=== PATIENT | female | born 1965 | race Caucasian/White ===

== ENCOUNTER → 2018-02-26 | Outpatient (CLI) | payer BC ==
[2018-02-26 16:09] LABS: BASO % 0.4 % (0.0-1.0); EOS # 0.2 10*3/uL (0.0-0.4); HEMATOCRIT 43.7 % (37.0-47.0); HEMOGLOBIN 14.5 g/dl (12.0-16.0); MEAN CELL VOLUME 89.9 fl (81.0-99.0); MEAN CORPUSCULAR HGB 29.8 pg (27.0-31.0); MEAN CORPUSCULAR HGB CONC 33.2 g/dl (33.0-37.0); MEAN PLATELET VOLUME 9.7 fl (9.6-12.3); MONO # 0.9 10*3/uL (0.1-1.0); MONO % 9.7 % (3.0-9.0); NEUT # 5.9 10*3/uL (2.3-7.9); NEUT % 65.3 % (47.0-73.0); PLATELET COUNT AUTOMATED 379 10*3/uL (130-400); RED BLOOD COUNT 4.86 10*6/uL (4.10-5.10); RED CELL DISTRI WIDTH 14.4 % (0-14.5)
[2018-02-26 16:24] LABS: ALBUMIN 3.3 gm/dl (3.1-4.5); ALKALINE PHOSPHATASE 81 U/L (45-117); BUN 10 mg/dl (7-24); CHLORIDE 99 mmol/L (98-107); CHOLESTEROL 249 mg/dL (<200); CREATININE 0.97 mg/dL (0.55-1.02); HDL CHOLESTEROL 42 mg/dl (40-60); IRON 74 ug/dL (50-170); LDL CHOLESTEROL 177 mg/dL (9-159); POTASSIUM 4.4 mmol/L (3.5-5.1); SGOT/AST 11 IU/L (3-35); SGPT/ALT 29 U/L (12-78); SODIUM 136 mmol/L (136-145); TOTAL IRON BINDING CAPACITY 284 ug/dl (250-450); TOTAL PROTEIN 7.8 gm/dL (6.4-8.2); TRIGLYCERIDES 151 mg/dl (<150); URIC ACID 4.8 mg/dL (2.6-6.0); VLDL CHOLESTEROL 30 mg/dL (6-40)
[2018-02-26 16:31] LABS: CPK 55 U/L (26-192)
[2018-02-26 17:16] LABS: FERRITIN 147.5 ng/mL (10.0-291.0); VITAMIN D, 25-HYDROXY 16.8 ng/mL (30-100)
== END | disposition home or self-care (01) ==
PROVIDERS: Family Medicine
DX: I50.22 Chronic systolic (congestive) heart failure (principal); E11.9 Type 2 diabetes mellitus without complications; J44.9 Chronic obstructive pulmonary disease, unspecified; K58.9 Irritable bowel syndrome, unspecified; F32.9 Major depressive disorder, single episode, unspecified; G40.909 Epilepsy, unspecified, not intractable, without status epilepticus; G47.33 Obstructive sleep apnea (adult) (pediatric)

== ENCOUNTER → 2020-06-26 | Outpatient (CLI) | payer OTHER, MEDICAID ==
[2020-06-26 15:24] LABS: ALBUMIN 3.3 gm/dl (3.1-4.5); ALKALINE PHOSPHATASE 77 U/L (45-117); BILIRUBIN, DIRECT 0.1 mg/dL (0.0-0.2); BUN 8 mg/dl (7-24); CHLORIDE 97 mmol/L (98-107); CHOLESTEROL 170 mg/dL (<200); CREATININE 1.04 mg/dL (0.55-1.02); LDL CHOLESTEROL 82 mg/dL (9-159); POTASSIUM 4.9 mmol/L (3.5-5.1); SGOT/AST 15 IU/L (3-35); SGPT/ALT 29 U/L (12-78); SODIUM 136 mmol/L (136-145); TOTAL PROTEIN 7.3 gm/dL (6.4-8.2); TRIGLYCERIDES 99 mg/dl (<150)
[2020-06-26 15:34] LABS: VITAMIN D, 25-HYDROXY 25.1 ng/mL (30-100)
[2020-06-26 16:57] LABS: BILIRUBIN Negative (Negative); BLOOD Negative (Negative); CLARITY Clear (Clear); COLOR Yellow (Yellow); GLUCOSE Negative (Negative); KETONE Negative (Negative); LEUKO ESTERASE Negative (Negative); NITRITE Negative (Negative); PH 6.5 (4.5-8.0); SPECIFIC GRAVITY <= 1.005 (1.001-1.030); UROBILINOGEN 0.2 E.U./dl (0.0-1.0)
[2020-06-26 17:37] LABS: BACTERIA 1+; RBC 0-2 rbc/hpf (0-2); WBC 0-2 wbc/hpf (0-5)
== END | disposition home or self-care (01) ==
LOC: LAB 13:55
PROVIDERS: ATTEND Internal Medicine
DX: E11.65 Type 2 diabetes mellitus with hyperglycemia (principal); E11.40 Type 2 diabetes mellitus with diabetic neuropathy, unspecified; E78.5 Hyperlipidemia, unspecified; E55.9 Vitamin D deficiency, unspecified

== ENCOUNTER → 2020-07-13 | Outpatient (CLI) | payer OTHER, MEDICAID ==
[2020-07-13 16:50] LABS: BILIRUBIN Negative (Negative); BLOOD Negative (Negative); CLARITY Clear (Clear); COLOR Yellow (Yellow); GLUCOSE Negative (Negative); KETONE Negative (Negative); LEUKO ESTERASE 3+ (Negative); NITRITE Negative (Negative); SPECIFIC GRAVITY <= 1.005 (1.001-1.030); UROBILINOGEN 0.2 E.U./dl (0.0-1.0)
[2020-07-13 16:57] LABS: EPITHELIAL CELLS 0-2; RBC 0-2 rbc/hpf (0-2); WBC TNTC wbc/hpf (0-5)
[2020-07-13 16:58] LABS: BACTERIA 1+
== END | disposition home or self-care (01) ==
LOC: CT 07-09 11:00 → LAB 15:05
PROVIDERS: ATTEND Urology
DX: R91.1 Solitary pulmonary nodule (principal); N39.0 Urinary tract infection, site not specified; I25.10 Atherosclerotic heart disease of native coronary artery without angina pectoris; Z96.82 Presence of neurostimulator

== ENCOUNTER → 2021-12-02 | Outpatient (CLI) | payer OTHER, MEDICAID | END | disposition home or self-care (01) | LOC: CT 11:00 | PROVIDERS: ATTEND Urology | DX: N39.0 Urinary tract infection, site not specified (principal); R31.9 Hematuria, unspecified; M25.512 Pain in left shoulder; N32.89 Other specified disorders of bladder; R91.1 Solitary pulmonary nodule; M89.8X8 Other specified disorders of bone, other site ==

== ENCOUNTER 2021-12-28 05:57 | Inpatient (IN) | payer OTHER, MEDICAID ==
[~2021-12-28] VITALS: Ht 165.1 cm; Wt 93.5 kg
[2021-12-28 06:00] VITALS: BP 181/56
[2021-12-28 06:46] LABS: BASO % 0.3 % (0.0-1.0); EOS # 0.1 10*3/uL (0.0-0.4); EOS % 1.1 % (1.0-4.0); HEMATOCRIT 34.6 % (37.0-47.0); LYMPH # 1.4 10*3/uL (1.3-4.4); LYMPH % 10.5 % (27.0-41.0); MEAN CELL VOLUME 79.7 fl (81.0-99.0); MEAN CORPUSCULAR HGB CONC 33.8 g/dl (33.0-37.0); MEAN PLATELET VOLUME 8.2 fl (9.6-12.3); MONO # 1.2 10*3/uL (0.1-1.0); MONO % 8.8 % (3.0-9.0); NEUT # 10.4 10*3/uL (2.3-7.9); NEUT % 78.6 % (47.0-73.0); PLATELET COUNT AUTOMATED 375 10*3/uL (130-400); RED BLOOD COUNT 4.34 10*6/uL (4.10-5.10); RED CELL DISTRI WIDTH 14.6 % (0-14.5); WHITE BLOOD COUNT 13.2 10*3/uL (4.8-10.8)
[2021-12-28 07:05] VITALS: BP 178/58
[2021-12-28 07:35] LABS: BUN 18 mg/dl (7-24); CHLORIDE 83 mmol/L (98-107); CREATININE 1.07 mg/dL (0.55-1.02); POTASSIUM 4.4 mmol/L (3.5-5.1); TOTAL PROTEIN 6.9 gm/dL (6.4-8.2)
[2021-12-28 07:36] LABS: ALKALINE PHOSPHATASE 71 U/L (45-117); SGOT/AST 14 IU/L (3-35); SGPT/ALT 18 U/L (12-78)
[2021-12-28 07:38] LABS: SODIUM 119 mmol/L (136-145)
[2021-12-28 11:04] LABS: BILIRUBIN Negative (Negative); BLOOD Negative (Negative); CLARITY Clear (Clear); COLOR Yellow (Yellow); GLUCOSE Negative (Negative); KETONE Negative (Negative); LEUKO ESTERASE Trace (Negative); NITRITE Negative (Negative); PH 5.5 (4.5-8.0); SPECIFIC GRAVITY <= 1.005 (1.001-1.030); UROBILINOGEN 0.2 E.U./dl (0.0-1.0)
[2021-12-28 11:15] LABS: BACTERIA 2+; EPITHELIAL CELLS 0-2
[2021-12-28 14:41] LABS: BUN 19 mg/dl (7-24); CHLORIDE 88 mmol/L (98-107); CREATININE 1.05 mg/dL (0.55-1.02); POTASSIUM 4.3 mmol/L (3.5-5.1); SODIUM 125 mmol/L (136-145)
[2021-12-28] MEDS ORDERED: PREGABALIN300 MG PO (16:53)
[2021-12-28] MEDS ORDERED: 'XANAX1 MG PO (16:53)
[2021-12-28] MEDS ORDERED: LYRICA75 M1 PO (16:54)
[2021-12-28] MEDS ORDERED: PREDNISONE20 M1 PO (16:56)
[2021-12-28] MEDS ORDERED: VARENICLINE TART1 MG PO (16:57)
[2021-12-28] MEDS ORDERED: LEVORPHANOL TART2 MG PO (16:57)
[2021-12-28] MEDS ORDERED: TRESIBA FL200 UNIT/1 SQ (16:59)
[2021-12-28] MEDS ORDERED: INSULIN LI100 UNIT/3 SQ (17:01)
[2021-12-28] MEDS ORDERED: DULOXETINE HCL60 MG PO (17:02)
[2021-12-28] MEDS ORDERED: RANOLAZINE ER500 MG PO (17:08)
[2021-12-28] MEDS ORDERED: PANTOPRAZOLE SO40 MG PO (17:09)
[2021-12-28] MEDS ORDERED: MONTELUKAST SOD10 MG PO (17:14)
[2021-12-28] MEDS ORDERED: POTASSIUM CHLO20 ME4 PO (17:15)
[2021-12-28] MEDS ORDERED: VITAMIN B-650 M1 PO (17:17)
[2021-12-28] MEDS ORDERED: GLIPIZIDE5 M1 PO (17:18)
[2021-12-28] MEDS ORDERED: SIMVASTATIN20 MG PO (17:19)
[2021-12-28] MEDS ORDERED: CARVEDILOL3.125 MG PO (17:20)
[2021-12-28] MEDS ORDERED: ASPIRIN ADULT L81 M1 PO (17:20)
[2021-12-28] MEDS ORDERED: CLOPIDOGREL75 MG PO (17:21)
[2021-12-28] MEDS ORDERED: METFORMIN HYDR500 MG PO (17:22)
[2021-12-28] MEDS ORDERED: FUROSEMIDE40 MG PO (17:22)
[2021-12-28] MEDS ORDERED: LISINOPRIL20 MG PO (17:23)
[2021-12-28] MEDS ORDERED: QUETIAPINE FUM200 M3 PO (17:23)
[2021-12-28] MEDS ORDERED: VITAMIN D3125 MC1 PO (17:24)
[2021-12-28] MEDS ORDERED: CETIRIZINE HYDR10 MG PO (17:25)
[2021-12-28] MEDS ORDERED: MYRBETRIQ25 M1 PO (17:25)
[2021-12-28 18:50] LABS: BUN 19 mg/dl (7-24); CHLORIDE 89 mmol/L (98-107); CREATININE 0.94 mg/dL (0.55-1.02); POTASSIUM 4.3 mmol/L (3.5-5.1); SODIUM 124 mmol/L (136-145)
[2021-12-28 19:23] VITALS: BP 114/44
[2021-12-28 22:40] VITALS: BP 126/56
[2021-12-28 23:25] LABS: BUN 16 mg/dl (7-24); CHLORIDE 92 mmol/L (98-107); CREATININE 0.91 mg/dL (0.55-1.02); POTASSIUM 3.9 mmol/L (3.5-5.1); SODIUM 129 mmol/L (136-145)
[2021-12-28 23:45] VITALS: BP 162/55
[2021-12-29] MEDS ORDERED: VENTOLIN 02.5 MG/3 M INH (00:24)
[2021-12-29] MEDS ORDERED: IPRATROPIU0.2 MG/1 M NEB (00:24)
[2021-12-29] MEDS ORDERED: XANAX0.5 MG PO (00:29)
[2021-12-29 04:00] VITALS: BP 162/50
[2021-12-29 05:00] LABS: ACT PARTIAL THROMBO TIME 27.7 SECONDS (20.0-32.1); INTERNATIONAL NORM RATIO 0.9 (2.0-3.5)
[2021-12-29 05:13] LABS: BUN 14 mg/dl (7-24); CHLORIDE 98 mmol/L (98-107); CHOLESTEROL 169 mg/dL (<200); CREATININE 0.85 mg/dL (0.55-1.02); POTASSIUM 4.3 mmol/L (3.5-5.1); SGOT/AST 14 IU/L (3-35); SGPT/ALT 23 U/L (12-78); SODIUM 133 mmol/L (136-145); TRIGLYCERIDES 102 mg/dl (<150)
[2021-12-29 05:17] LABS: ALKALINE PHOSPHATASE 76 U/L (45-117); FREE T4 0.88 ng/dl (0.76-1.46); LDL CHOLESTEROL 69 mg/dL (9-159); TOTAL PROTEIN 7.4 gm/dL (6.4-8.2)
[2021-12-29 06:25] LABS: BASO % 0.5 % (0.0-1.0); EOS # 0.1 10*3/uL (0.0-0.4); EOS % 0.9 % (1.0-4.0); HEMATOCRIT 36.2 % (37.0-47.0); LYMPH # 2.1 10*3/uL (1.3-4.4); LYMPH % 26.7 % (27.0-41.0); MEAN CELL VOLUME 81.7 fl (81.0-99.0); MEAN CORPUSCULAR HGB 26.9 pg (27.0-31.0); MEAN CORPUSCULAR HGB CONC 32.9 g/dl (33.0-37.0); MEAN PLATELET VOLUME 8.9 fl (9.6-12.3); MONO # 1.2 10*3/uL (0.1-1.0); MONO % 15.2 % (3.0-9.0); NEUT # 4.5 10*3/uL (2.3-7.9); NEUT % 56.4 % (47.0-73.0); PLATELET COUNT AUTOMATED 454 10*3/uL (130-400); RED BLOOD COUNT 4.43 10*6/uL (4.10-5.10); RED CELL DISTRI WIDTH 15.2 % (0-14.5); WHITE BLOOD COUNT 7.9 10*3/uL (4.8-10.8)
[2021-12-29 06:59] LABS: VITAMIN D, 25-HYDROXY 59.9 ng/mL (30-100)
[2021-12-29 08:00] VITALS: BP 108/36
[2021-12-29 10:07] LABS: BUN 12 mg/dl (7-24); CHLORIDE 97 mmol/L (98-107); CREATININE 0.86 mg/dL (0.55-1.02); POTASSIUM 4.2 mmol/L (3.5-5.1); SODIUM 130 mmol/L (136-145)
[2021-12-29 12:00] VITALS: BP 92/32
[2021-12-29 12:42] LABS: BUN 12 mg/dl (7-24); CHLORIDE 97 mmol/L (98-107); CREATININE 0.76 mg/dL (0.55-1.02); POTASSIUM 4.7 mmol/L (3.5-5.1); SODIUM 131 mmol/L (136-145)
[2021-12-29 15:50] LABS: BUN 11 mg/dl (7-24); CHLORIDE 96 mmol/L (98-107); CREATININE 0.96 mg/dL (0.55-1.02); POTASSIUM 4.9 mmol/L (3.5-5.1); SODIUM 129 mmol/L (136-145)
[2021-12-29 16:00] VITALS: BP 101/42
[2021-12-29 18:41] LABS: BUN 13 mg/dl (7-24); CHLORIDE 95 mmol/L (98-107); CREATININE 1.02 mg/dL (0.55-1.02); SODIUM 128 mmol/L (136-145)
[2021-12-29 20:00] VITALS: BP 107/38
[2021-12-29 21:42] LABS: BUN 14 mg/dl (7-24); CHLORIDE 93 mmol/L (98-107); CREATININE 0.94 mg/dL (0.55-1.02); POTASSIUM 4.8 mmol/L (3.5-5.1); SODIUM 128 mmol/L (136-145)
[2021-12-30] VITALS: BP 127/64
[2021-12-30 01:23] LABS: BUN 13 mg/dl (7-24); CHLORIDE 90 mmol/L (98-107); CREATININE 0.91 mg/dL (0.55-1.02); POTASSIUM 4.4 mmol/L (3.5-5.1); SODIUM 124 mmol/L (136-145)
[2021-12-30 04:00] VITALS: BP 141/47
[2021-12-30 06:49] LABS: BASO % 0.6 % (0.0-1.0); EOS % 0.4 % (1.0-4.0); HEMATOCRIT 28.5 % (37.0-47.0); LYMPH # 1.9 10*3/uL (1.3-4.4); LYMPH % 26.7 % (27.0-41.0); MEAN CELL VOLUME 80.5 fl (81.0-99.0); MEAN CORPUSCULAR HGB 27.7 pg (27.0-31.0); MEAN CORPUSCULAR HGB CONC 34.4 g/dl (33.0-37.0); MEAN PLATELET VOLUME 8.3 fl (9.6-12.3); MONO % 14.1 % (3.0-9.0); NEUT # 4.2 10*3/uL (2.3-7.9); NEUT % 58.1 % (47.0-73.0); PLATELET COUNT AUTOMATED 328 10*3/uL (130-400); RED BLOOD COUNT 3.54 10*6/uL (4.10-5.10); RED CELL DISTRI WIDTH 15.1 % (0-14.5); WHITE BLOOD COUNT 7.2 10*3/uL (4.8-10.8)
[2021-12-30 07:15] LABS: CHLORIDE 91 mmol/L (98-107); POTASSIUM 4.2 mmol/L (3.5-5.1); SODIUM 125 mmol/L (136-145)
[2021-12-30 07:21] LABS: BUN 12 mg/dl (7-24); CREATININE 0.82 mg/dL (0.55-1.02)
[2021-12-30 08:00] VITALS: BP 136/48
[2021-12-30 11:47] LABS: BUN 12 mg/dl (7-24); CHLORIDE 90 mmol/L (98-107); CREATININE 0.94 mg/dL (0.55-1.02); POTASSIUM 4.7 mmol/L (3.5-5.1); SODIUM 125 mmol/L (136-145)
[2021-12-30 12:00] VITALS: BP 138/99
[2021-12-30 12:09] LABS: BILIRUBIN Negative (Negative); BLOOD Negative (Negative); CLARITY Clear (Clear); COLOR Yellow (Yellow); GLUCOSE 2+ (Negative); KETONE Negative (Negative); LEUKO ESTERASE 1+ (Negative); NITRITE Negative (Negative); PH 5.5 (4.5-8.0); UROBILINOGEN 0.2 E.U./dl (0.0-1.0)
[2021-12-30 12:32] LABS: RBC 0-2 rbc/hpf (0-2)
[2021-12-30 16:00] VITALS: BP 153/48
[2021-12-30 16:21] LABS: BUN 11 mg/dl (7-24); CHLORIDE 88 mmol/L (98-107); CREATININE 0.93 mg/dL (0.55-1.02); SODIUM 123 mmol/L (136-145)
[2021-12-30 20:00] VITALS: BP 138/62
[2021-12-31] VITALS: BP 128/64
[2021-12-31 04:00] VITALS: BP 142/64
[2021-12-31 06:00] LABS: BUN 9 mg/dl (7-24); CHLORIDE 89 mmol/L (98-107); CREATININE 0.74 mg/dL (0.55-1.02); POTASSIUM 4.1 mmol/L (3.5-5.1); SODIUM 124 mmol/L (136-145)
[2021-12-31 08:00] VITALS: BP 136/56
[2021-12-31] MEDS ORDERED: ZITHROMAX TRI-500 M1 PO (15:46)
== END 2021-12-31 16:46 | disposition home health service (06) | DRG 640 ==
LOC: ED 05:57 → ICCU 08:52 → EDHOLD 08:52 → ICCU 23:29
PROVIDERS: Emergency Medicine; Internal Medicine; Student in an Organized Health Care Education/Training Program; ADMIT Student in an Organized Health Care Education/Training Program; ATTEND Student in an Organized Health Care Education/Training Program
PROC: 5A09357 Assistance with Respiratory Ventilation, Less than 24 Consecutive Hours, Continuous Positive Airway Pressure (ICD-10-PCS; principal; 2021-12-28)
PROC: 5A09357 Assistance with Respiratory Ventilation, Less than 24 Consecutive Hours, Continuous Positive Airway Pressure (ICD-10-PCS; 2021-12-29)
PROC: 5A09357 Assistance with Respiratory Ventilation, Less than 24 Consecutive Hours, Continuous Positive Airway Pressure (ICD-10-PCS; 2021-12-31)
DX: E87.1 Hypo-osmolality and hyponatremia (principal); N17.0 Acute kidney failure with tubular necrosis; J44.1 Chronic obstructive pulmonary disease with (acute) exacerbation; E44.1 Mild protein-calorie malnutrition; I50.32 Chronic diastolic (congestive) heart failure; I25.10 Atherosclerotic heart disease of native coronary artery without angina pectoris; J45.909 Unspecified asthma, uncomplicated; R04.0 Epistaxis; F41.9 Anxiety disorder, unspecified; K21.9 Gastro-esophageal reflux disease without esophagitis; F32.9 Major depressive disorder, single episode, unspecified; D72.829 Elevated white blood cell count, unspecified; E11.65 Type 2 diabetes mellitus with hyperglycemia; F17.210 Nicotine dependence, cigarettes, uncomplicated; D50.9 Iron deficiency anemia, unspecified; I11.0 Hypertensive heart disease with heart failure; E87.8 Other disorders of electrolyte and fluid balance, not elsewhere classified; Z88.2 Allergy status to sulfonamides; Z88.8 Allergy status to other drugs, medicaments and biological substances; Z90.710 Acquired absence of both cervix and uterus; Z98.51 Tubal ligation status; Z95.5 Presence of coronary angioplasty implant and graft; Z79.4 Long term (current) use of insulin; Z82.49 Family history of ischemic heart disease and other diseases of the circulatory system; Z83.3 Family history of diabetes mellitus; Z82.3 Family history of stroke; Z71.6 Tobacco abuse counseling; Z68.34 Body mass index [BMI] 34.0-34.9, adult

== ENCOUNTER 2022-08-26 16:03 | Emergency (ER) | payer OTHER, MEDICAID ==
[~2022-08-26 16:03] MED LIST: 'XANAX1 MG PO; ASPIRIN ADULT L81 M1 PO; CARVEDILOL3.125 MG PO; CETIRIZINE HYDR10 MG PO; CLOPIDOGREL75 MG PO; DULOXETINE HCL60 MG PO; FUROSEMIDE40 MG PO; GLIPIZIDE5 M1 PO; INSULIN LI100 UNIT/3 SQ; IPRATROPIU0.2 MG/1 M NEB; LEVORPHANOL TART2 MG PO; LISINOPRIL20 MG PO; LYRICA75 M1 PO; MAGNESIUM400 M1 PO; METFORMIN HYDR500 MG PO; MONTELUKAST SOD10 MG PO; MYRBETRIQ25 M1 PO; PANTOPRAZOLE SO40 MG PO; POTASSIUM CHLO20 ME4 PO; PREDNISONE20 M1 PO; PREGABALIN300 MG PO; QUETIAPINE FUM200 M3 PO; RANOLAZINE ER500 MG PO; SIMVASTATIN20 MG PO; TRESIBA FL200 UNIT/1 SQ; VARENICLINE TART1 MG PO; VENTOLIN 02.5 MG/3 M INH; VIT D PO; VITAMIN B-650 M1 PO; VITAMIN D3125 MC1 PO; XANAX0.5 MG PO; ZITHROMAX TRI-500 M1 PO
[2022-08-26] MEDS ORDERED: HYDROCODONE-AC1 EAC1 PO (18:18)
== END 2022-08-26 18:25 | disposition home or self-care (01) ==
LOC: ED 16:03
DX: S50.02XA Contusion of left elbow, initial encounter (principal); J44.9 Chronic obstructive pulmonary disease, unspecified; Z88.2 Allergy status to sulfonamides; Z88.6 Allergy status to analgesic agent; Z88.8 Allergy status to other drugs, medicaments and biological substances; Z98.51 Tubal ligation status; Z90.710 Acquired absence of both cervix and uterus; Z98.890 Other specified postprocedural states; F17.200 Nicotine dependence, unspecified, uncomplicated; W01.10XA Fall on same level from slipping, tripping and stumbling with subsequent striking against unspecified object, initial encounter; Y93.89 Activity, other specified; Y92.89 Other specified places as the place of occurrence of the external cause; Y99.8 Other external cause status

== ENCOUNTER 2023-02-14 03:24 | Emergency (ER) | payer OTHER, MEDICAID ==
[~2023-02-14] VITALS: Ht 165.1 cm; Wt 111.6 kg
[~2023-02-14 03:24] MED LIST changes: +AMIODARONE HYD200 MG PO; +ATARAX,VISTARIL50 MG PO; +ATORVASTATIN CA40 M1 PO; +BUSPIRONE HCL30 MG PO; +CYMBALTA60 MG PO; +DOXEPIN HCL10 MG PO; +HUMALOG100 UNIT/1 SC; +HYDROCODONE-AC1 EAC1 PO; +LACTULOSE20 GM/30 M PO; +LASIX40 MG PO; +LISINOPRIL2.5 MG PO; +LUNESTA3 M1 PO; +METOPROLOL SUCC25 M2 PO; +ONDANSETRON HYDR4 M1 PO; +PLAVIX75 M1 PO; +PROTONIX40 MG PO; +REXULTI3 MG PO; +TRELEGY ELLIPT1 EACH INH; +VERQUVO10 MG PO; +VESICARE5 MG PO; +VITAMIN B6100 MG/2.5 PO; +VITAMIN D3125 MCG PO; +Vit. B650 MG PO; +XARE20MG PO
[2023-02-14 03:42] LABS: BASO % 0.1 % (0.0-1.0); EOS % 0.1 % (1.0-4.0); HEMATOCRIT 28.6 % (37.0-47.0); LYMPH # 0.7 10*3/uL (1.3-4.4); LYMPH % 7.5 % (27.0-41.0); MEAN CELL VOLUME 84.6 fl (81.0-99.0); MEAN CORPUSCULAR HGB 26.6 pg (27.0-31.0); MEAN CORPUSCULAR HGB CONC 31.5 g/dl (33.0-37.0); MEAN PLATELET VOLUME 8.6 fl (9.6-12.3); MONO # 0.3 10*3/uL (0.1-1.0); MONO % 3.7 % (3.0-9.0); NEUT # 7.8 10*3/uL (2.3-7.9); NEUT % 87.9 % (47.0-73.0); PLATELET COUNT AUTOMATED 397 10*3/uL (130-400); RED BLOOD COUNT 3.38 10*6/uL (4.10-5.10); RED CELL DISTRI WIDTH 15.2 % (0-14.5); WHITE BLOOD COUNT 8.9 10*3/uL (4.8-10.8)
[2023-02-14 04:02] LABS: POTASSIUM 4.2 mmol/L (3.4-5.1)
[2023-02-14] MEDS ORDERED: AMOX-CLAV 875-1 EACH PO (07:12)
== END 2023-02-14 07:09 | disposition home or self-care (01) ==
LOC: ED 03:24
PROVIDERS: Internal Medicine
DX: U07.1 COVID-19 (principal); N18.31 Chronic kidney disease, stage 3a; J44.9 Chronic obstructive pulmonary disease, unspecified; J32.9 Chronic sinusitis, unspecified; D64.9 Anemia, unspecified; E44.1 Mild protein-calorie malnutrition; Z68.1 Body mass index [BMI] 19.9 or less, adult; Z88.8 Allergy status to other drugs, medicaments and biological substances; Z88.6 Allergy status to analgesic agent; Z88.2 Allergy status to sulfonamides; Z90.710 Acquired absence of both cervix and uterus; Z98.51 Tubal ligation status; Z98.890 Other specified postprocedural states; Z87.891 Personal history of nicotine dependence

== ENCOUNTER 2023-03-04 02:53 | Emergency (ER) | payer OTHER, MEDICAID ==
[~2023-03-04] VITALS: Ht 165.1 cm; Wt 104.3 kg
[~2023-03-04 02:53] MED LIST changes: +AMOX-CLAV 875-1 EACH PO
[2023-03-04 03:17] LABS: BASO % 0.3 % (0.0-1.0); EOS # 0.1 10*3/uL (0.0-0.4); EOS % 1.3 % (1.0-4.0); HEMATOCRIT 30.3 % (37.0-47.0); LYMPH # 1.3 10*3/uL (1.3-4.4); LYMPH % 12.1 % (27.0-41.0); MEAN CELL VOLUME 82.3 fl (81.0-99.0); MEAN CORPUSCULAR HGB 26.1 pg (27.0-31.0); MEAN CORPUSCULAR HGB CONC 31.7 g/dl (33.0-37.0); MEAN PLATELET VOLUME 8.8 fl (9.6-12.3); MONO # 1.2 10*3/uL (0.1-1.0); NEUT # 7.6 10*3/uL (2.3-7.9); PLATELET COUNT AUTOMATED 405 10*3/uL (130-400); RED BLOOD COUNT 3.68 10*6/uL (4.10-5.10); RED CELL DISTRI WIDTH 15.2 % (0-14.5); WHITE BLOOD COUNT 10.3 10*3/uL (4.8-10.8)
[2023-03-04 03:42] LABS: ALKALINE PHOSPHATASE 92 U/L (46-116); BUN 9 mg/dl (9-23); CHLORIDE 90 mmol/L (98-107); LIPASE 26 U/L (12-53); POTASSIUM 3.7 mmol/L (3.4-5.1); SGPT/ALT 19 U/L (5-49)
== END 2023-03-04 08:30 | disposition short-term general hospital (02) ==
LOC: ED 02:53
PROVIDERS: Internal Medicine
DX: K92.2 Gastrointestinal hemorrhage, unspecified (principal); Z88.8 Allergy status to other drugs, medicaments and biological substances; Z88.2 Allergy status to sulfonamides; Z79.899 Other long term (current) drug therapy; Z79.2 Long term (current) use of antibiotics; Z79.4 Long term (current) use of insulin; Z90.711 Acquired absence of uterus with remaining cervical stump; Z98.51 Tubal ligation status; Z95.5 Presence of coronary angioplasty implant and graft; Z87.891 Personal history of nicotine dependence; R06.02 Shortness of breath

== ENCOUNTER 2023-03-27 17:21 | Emergency (ER) | payer OTHER, MEDICAID ==
[~2023-03-27] VITALS: Ht 162.5 cm; Wt 113.4 kg
[~2023-03-27 17:21] MED LIST changes: +ATIVAN0.5 MG PO; +CYMBALTA30 MG PO; +LASIX20 MG PO; +REXULTI2 MG PO
[2023-03-27 18:00] LABS: BASO % 0.3 % (0.0-1.0); EOS # 0.1 10*3/uL (0.0-0.4); HEMATOCRIT 29.7 % (37.0-47.0); LYMPH # 1.3 10*3/uL (1.3-4.4); LYMPH % 17.2 % (27.0-41.0); MEAN CELL VOLUME 82.7 fl (81.0-99.0); MEAN CORPUSCULAR HGB 25.1 pg (27.0-31.0); MEAN CORPUSCULAR HGB CONC 30.3 g/dl (33.0-37.0); MEAN PLATELET VOLUME 9.2 fl (9.6-12.3); MONO # 1.2 10*3/uL (0.1-1.0); MONO % 15.6 % (3.0-9.0); NEUT % 65.5 % (47.0-73.0); PLATELET COUNT AUTOMATED 326 10*3/uL (130-400); RED BLOOD COUNT 3.59 10*6/uL (4.10-5.10); RED CELL DISTRI WIDTH 16.4 % (0-14.5); WHITE BLOOD COUNT 7.6 10*3/uL (4.8-10.8)
[2023-03-27 18:29] LABS: ALKALINE PHOSPHATASE 80 U/L (46-116); BUN 8 mg/dl (9-23); CHLORIDE 95 mmol/L (98-107); LIPASE 25 U/L (12-53); POTASSIUM 4.1 mmol/L (3.4-5.1); SGPT/ALT 28 U/L (5-49); TOTAL PROTEIN 6.4 gm/dL (6.0-8.0)
[2023-03-27 19:59] LABS: BILIRUBIN Negative (Negative); BLOOD 2+ (Negative); CLARITY Clear (Clear); COLOR Yellow (Yellow); GLUCOSE Negative (Negative); KETONE Negative (Negative); LEUKO ESTERASE Trace (Negative); NITRITE Negative (Negative); SPECIFIC GRAVITY <= 1.005 (1.001-1.030); UROBILINOGEN 0.2 E.U./dl (0.0-1.0)
[2023-03-27 20:28] LABS: BACTERIA 1+
== END 2023-03-27 23:12 | disposition home or self-care (01) ==
LOC: ED 17:21
PROVIDERS: Emergency Medicine
DX: R51.9 Headache, unspecified (principal); N18.31 Chronic kidney disease, stage 3a; R79.82 Elevated C-reactive protein (CRP); E87.1 Hypo-osmolality and hyponatremia; E44.1 Mild protein-calorie malnutrition; J44.9 Chronic obstructive pulmonary disease, unspecified; Z68.1 Body mass index [BMI] 19.9 or less, adult; D64.9 Anemia, unspecified; Z88.6 Allergy status to analgesic agent; Z88.2 Allergy status to sulfonamides; Z88.8 Allergy status to other drugs, medicaments and biological substances; Z90.710 Acquired absence of both cervix and uterus; Z98.51 Tubal ligation status; Z98.890 Other specified postprocedural states; Z87.891 Personal history of nicotine dependence

== ENCOUNTER 2023-05-22 02:58 | Emergency (ER) | payer OTHER, MEDICAID ==
[~2023-05-22] VITALS: Ht 162.5 cm; Wt 112.0 kg
[~2023-05-22 02:58] MED LIST changes: +CYCLOBENZAPRINE5 M3 PO; +IMITREX50 MG PO; +LIPITOR40 MG PO; +NITROSTAT0.4 MG SL; +OMNICEF300 MG PO; +ONDANSETRON4 MG SL; +REGLAN5 MG PO; +SINGULAIR10 M1 PO; +THERMOTABS TAB1 EACH PO; +UBRELVY100 MG PO
[2023-05-22] MEDS ORDERED: methylPREDNISolone sod succ 125 MG VIAL IV ONE (03:10)
[2023-05-22] MEDS ORDERED: Albuterol Sulf/Ipratropium 3 ML VIAL NEB ONE (03:25)
[2023-05-22 04:17] LABS: BASO % 0.1 % (0.0-1.0); EOS # 0.1 10*3/uL (0.0-0.4); LYMPH # 0.9 10*3/uL (1.3-4.4); LYMPH % 12.1 % (27.0-41.0); MEAN CELL VOLUME 78.9 fl (81.0-99.0); MEAN CORPUSCULAR HGB 25.4 pg (27.0-31.0); MEAN CORPUSCULAR HGB CONC 32.2 g/dl (33.0-37.0); MEAN PLATELET VOLUME 8.7 fl (9.6-12.3); MONO # 0.4 10*3/uL (0.1-1.0); MONO % 6.1 % (3.0-9.0); NEUT # 5.7 10*3/uL (2.3-7.9); NEUT % 80.4 % (47.0-73.0); PLATELET COUNT AUTOMATED 395 10*3/uL (130-400); RED BLOOD COUNT 3.42 10*6/uL (4.10-5.10); RED CELL DISTRI WIDTH 16.5 % (0-14.5); WHITE BLOOD COUNT 7.1 10*3/uL (4.8-10.8)
[2023-05-22 04:43] LABS: ALKALINE PHOSPHATASE 80 U/L (46-116); BUN 12 mg/dl (9-23); CHLORIDE 89 mmol/L (98-107); POTASSIUM 3.9 mmol/L (3.4-5.1); SGPT/ALT 25 U/L (5-49); TOTAL PROTEIN 6.7 gm/dL (6.0-8.0)
[2023-05-22] MEDS ORDERED: ACETAMINOPHEN 325 MG TAB PO ONE (06:25)
[2023-05-22] MEDS ORDERED: AZITHROMYCIN 250 ML IV ONE (06:50)
[2023-05-22] MEDS ORDERED: Ceftriaxone Sodium 1 GM/10 ML SYR IV ONE (06:50)
== END 2023-05-22 07:34 | disposition home or self-care (01) ==
LOC: ED 02:58
PROVIDERS: Internal Medicine
DX: R06.2 Wheezing (principal); Z20.822 Contact with and (suspected) exposure to COVID-19; N18.31 Chronic kidney disease, stage 3a; J44.9 Chronic obstructive pulmonary disease, unspecified; D64.9 Anemia, unspecified; Z88.6 Allergy status to analgesic agent; Z88.2 Allergy status to sulfonamides; Z88.8 Allergy status to other drugs, medicaments and biological substances; Z90.710 Acquired absence of both cervix and uterus; Z98.51 Tubal ligation status; Z98.890 Other specified postprocedural states; Z87.891 Personal history of nicotine dependence; Z53.29 Procedure and treatment not carried out because of patient's decision for other reasons

== ENCOUNTER → 2023-08-04 | Outpatient (CLI) | payer OTHER ==
[~2023-08-04] MED LIST changes: +CIPRO500 MG PO; +IOHEXOL 350 MG/ML 100 ML VIAL IV ONE
== END | disposition home or self-care (01) ==
LOC: CT 08-01 13:00 → LAB 14:17 → CT 15:00
PROVIDERS: ATTEND Urology
DX: R31.9 Hematuria, unspecified (principal)

== ENCOUNTER 2024-04-09 22:42 | Emergency (ER) | payer OTHER ==
[~2024-04-09] VITALS: Ht 162.5 cm; Wt 97.1 kg
[~2024-04-09 22:42] MED LIST changes: -IOHEXOL 350 MG/ML 100 ML VIAL IV ONE; +MACROBID100 M1 PO
[2024-04-09 23:12] LABS: BASO % 0.4 % (0.0-1.0); EOS # 0.1 10*3/uL (0.0-0.4); EOS % 1.5 % (1.0-4.0); HEMATOCRIT 38.6 % (37.0-47.0); MEAN CELL VOLUME 88.7 fl (81.0-99.0); MEAN CORPUSCULAR HGB CONC 31.6 g/dl (33.0-37.0); MONO # 0.6 10*3/uL (0.1-1.0); MONO % 8.7 % (3.0-9.0); NEUT # 5.3 10*3/uL (2.3-7.9); PLATELET COUNT AUTOMATED 324 10*3/uL (130-400); RED BLOOD COUNT 4.35 10*6/uL (4.10-5.10); RED CELL DISTRI WIDTH 15.5 % (0-14.5); WHITE BLOOD COUNT 7.3 10*3/uL (4.8-10.8)
[2024-04-09 23:31] LABS: POTASSIUM 3.9 mmol/L (3.4-5.1)
[2024-04-10] MEDS ORDERED: SODIUM CHLORIDE 0.9% 1,000 ML IV ONE (00:55)
== END 2024-04-10 01:31 | disposition home or self-care (01) ==
LOC: ED 22:42
PROVIDERS: Internal Medicine
DX: R00.1 Bradycardia, unspecified (principal); E87.1 Hypo-osmolality and hyponatremia; J44.9 Chronic obstructive pulmonary disease, unspecified; D63.1 Anemia in chronic kidney disease; N18.30 Chronic kidney disease, stage 3 unspecified; N17.9 Acute kidney failure, unspecified; Z87.891 Personal history of nicotine dependence; Z88.8 Allergy status to other drugs, medicaments and biological substances; Z88.6 Allergy status to analgesic agent; Z88.2 Allergy status to sulfonamides; Z90.710 Acquired absence of both cervix and uterus; Z98.890 Other specified postprocedural states

== ENCOUNTER → 2024-05-31 | Outpatient (CLI) | payer OTHER | END | disposition home or self-care (01) | LOC: CARD 00:26 | PROVIDERS: ATTEND Internal Medicine Cardiovascular Disease | DX: I49.3 Ventricular premature depolarization (principal); I49.1 Atrial premature depolarization; R06.02 Shortness of breath; R07.9 Chest pain, unspecified; I11.0 Hypertensive heart disease with heart failure; I50.32 Chronic diastolic (congestive) heart failure; J44.9 Chronic obstructive pulmonary disease, unspecified; I25.10 Atherosclerotic heart disease of native coronary artery without angina pectoris; R07.89 Other chest pain; R42 Dizziness and giddiness; R53.83 Other fatigue; R00.1 Bradycardia, unspecified; R06.00 Dyspnea, unspecified; Z99.81 Dependence on supplemental oxygen ==

== ENCOUNTER 2024-10-22 01:54 | Emergency (ER) | payer OTHER, MEDICAID ==
[~2024-10-22] VITALS: Ht 162.5 cm; Wt 70.3 kg
[2024-10-22 02:15] LABS: BASO # 0.0 10*3/uL (0.0-0.1); BASO % 0.3 % (0.0-1.0); EOS # 0.2 10*3/uL (0.0-0.4); EOS % 2.0 % (1.0-4.0); MEAN CELL VOLUME 89.5 fl (81.0-99.0); MEAN CORPUSCULAR HGB 29.4 pg (27.0-31.0); MEAN PLATELET VOLUME 9.2 fl (9.6-12.3); MONO # 0.7 10*3/uL (0.1-1.0); MONO % 9.5 % (3.0-9.0); NEUT # 4.8 10*3/uL (2.3-7.9); NEUT % 65.6 % (47.0-73.0); NUCLEATED RED BLOOD CELL 0.0 % (0.0-0.0); NUCLEATED RED BLOOD CELL 0.0 10*3/uL (0.0-0.0); PLATELET COUNT AUTOMATED 312 10*3/uL (130-400); RED CELL DISTRI WIDTH 14.3 % (0-14.5)
[2024-10-22 02:34] LABS: BUN 9 mg/dl (9-23)
== END 2024-10-22 07:48 | disposition home or self-care (01) ==
LOC: ED 01:54
PROVIDERS: Internal Medicine
DX: R07.89 Other chest pain (principal); E87.1 Hypo-osmolality and hyponatremia; E11.22 Type 2 diabetes mellitus with diabetic chronic kidney disease; I12.9 Hypertensive chronic kidney disease with stage 1 through stage 4 chronic kidney disease, or unspecified chronic kidney disease; N18.31 Chronic kidney disease, stage 3a; E78.5 Hyperlipidemia, unspecified; Z88.8 Allergy status to other drugs, medicaments and biological substances; Z88.2 Allergy status to sulfonamides; Z79.84 Long term (current) use of oral hypoglycemic drugs; Z79.4 Long term (current) use of insulin; Z79.899 Other long term (current) drug therapy; Z90.710 Acquired absence of both cervix and uterus; Z95.5 Presence of coronary angioplasty implant and graft; Z87.891 Personal history of nicotine dependence